=== PATIENT | male | born 1960 | race Caucasian/White ===

== ENCOUNTER 2023-05-12 19:36 | Emergency (ER) | payer SELFPAY ==
[~2023-05-12] VITALS: Ht 172.7 cm; Wt 73.0 kg
[2023-05-12 19:44] VITALS: BP 128/78; PULSE 96; RESP 18; TEMP 98.6; O2SAT 97
[2023-05-12] MEDS ORDERED: ACETAMINOPHEN 500MG TABLET PO ONE (20:00)
== END 2023-05-13 06:22 | disposition home or self-care (01) ==
LOC: ER 19:36
DX: F10.129 Alcohol abuse with intoxication, unspecified (principal); R51.9 Headache, unspecified; I10 Essential (primary) hypertension
CPT/HCPCS: 99283